=== PATIENT | male | born 1950 | race Caucasian/White ===

== ENCOUNTER 2019-08-28 12:10 | Inpatient (IN) | payer OTHER ==
[~2019-08-28] VITALS: Ht 182.9 cm; Wt 80.2 kg
[2019-08-28 12:16] VITALS: BP 108/63
[2019-08-28 13:07] LABS: ABSOLUTE NEUTROPHILS 4.6 thou/uL (1.4-8.2); BASOPHILS 0.7 % (0.0-2.0); EOSINOPHILS 0.7 % (0.0-3.0); HEMATOCRIT 41.3 % (42.0-52.0); HEMOGLOBIN 13.4 gm/dL (14.0-18.0); LYMPHOCYTES 16.5 % (24.0-44.0); MCH 30.7 pg (26.0-34.0); MCHC 32.5 g/dL (28.0-37.0); MCV 94.2 fL (80.0-100.0); MONOCYTES 5.9 % (1.0-8.0); PLATELET COUNT 178 thou/uL (150-400); POLYS 76.2 % (36.0-66.0); RBC 4.38 mil/uL (4.50-6.00); RDW 13.7 % (10.5-14.5)
[2019-08-28 13:08] LABS: CREATININE 0.8 mg/dL (0.7-1.3); POTASSIUM 4.5 mmol/L (3.5-5.1)
[2019-08-28 13:14] LABS: ALBUMIN 3.7 g/dL (3.4-5.0); TOTAL BILIRUBIN 0.9 mg/dL (<0.1-1.0); TOTAL PROTEIN 6.7 g/dL (6.4-8.2)
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
[2019-08-28 13:42] VITALS: BP 109/59; BP 112/64
[2019-08-28] MEDS ORDERED: ASA81BEC PO (13:45)
[2019-08-28] MEDS ORDERED: CERTAVITE SR-A1 EACH PO (13:46)
[2019-08-28] MEDS ORDERED: OMEPRAZOLE 20 M20 M1 PO (13:46)
[2019-08-28] MEDS ORDERED: CELEXA 10 MG TA10 M1 PO (13:46)
[2019-08-28] MEDS ORDERED: LOTENSIN10 MG PO (13:46)
[2019-08-28] MEDS ORDERED: DOK100 MG PO (13:46)
[2019-08-28] MEDS ORDERED: ARICEPT10 M1 PO (13:46)
[2019-08-28 14:06] LABS: URINE BILIRUBIN NEGATIVE (Negative); URINE BLOOD NEGATIVE (Negative); URINE CLARITY CLEAR; URINE COLOR YELLOW; URINE GLUCOSE-RANDOM* NEGATIVE (Negative); URINE KETONES NEGATIVE (Negative); URINE LEUKOCYTES-REFLEX NEGATIVE (Negative); URINE NITRITE-REFLEX NEGATIVE (Negative); URINE PROTEIN (DIPSTICK) NEGATIVE (Negative); URINE UROBILINOGEN 0.2 E.U./dl (0.2-1.0)
[2019-08-28 14:14] LABS: AMP/METHAMP Negative (Negative); BARBITURATES Negative (Negative); BENZODIAZEPINES Negative (Negative); COCAINE Negative (Negative); METHADONE Negative (Negative); OPIATES Negative (Negative); PCP Negative (Negative)
[2019-08-28 14:36] VITALS: BP 109/63
[2019-08-28 15:33] VITALS: BP 109/63
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
[2019-08-28] MEDS ORDERED: NAMENDA 10 MG T10 MG PO ×2 (16:23→16:29)
[2019-08-28] MEDS ORDERED: FLOMAX0.4 MG PO (16:26)
[2019-08-28] MEDS ORDERED: FLECAINIDE ACET50 M1 PO (16:28)
[2019-08-28 19:50] VITALS: BP 107/64
[2019-08-28 20:15] VITALS: BP 107/64
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
[2019-08-29 08:30] VITALS: BP 105/65
--- NOTE | 2019-08-29 08:45 | NUR ---
PT EATING IN DINING ROOM. PT DENIES ANY PAIN. PT WAS ABLE TO DRESS SELF THIS AM, PT WAS SLOW TO PUTTING ON CLOTHES. PT TOOK MEDS THIS AM ONE AT TIME. PT ABLE TO WALK WITH STEADY GAIT.
[2019-08-29 08:48] VITALS: BP 105/65
--- NOTE | 2019-08-29 15:12 | NUR ---
HELEN called Sohail pt's twin and guardian to complete the intake assessment and TP. Helen spoke with pt and was able to establish some accuracry. Pt lives at [facility] [phone] in [facility] and is able to return there after d/c. FAX [phone]. Director would like to see some change in level of anxiety and paranoid ideas , including comfort. Helen will send updates as needed. Family meeting was set for 08/29 at 11:[address] crowe and Sw team.
[2019-08-29 19:26] VITALS: BP 112/65
[2019-08-29 21:00] VITALS: BP 112/65
--- NOTE | 2019-08-30 04:29 | NUR ---
Assumed care of patient this pm shift. Patient sitting at a table in the activity area. Patients affect flat. Patient is slow to respond to questions but does respond. Patient denies pain. Patient denies hi/si. Patient ambulates with out assistance. Patient takes medications whole. Patients assessment shows clear breath sounds, active bowel sounds, and s1 s2 heard with auscultation. Patient is neat and tidy in dress. Patient is calm and cooperative. No aggressive behaviors. We will continue to monitor.
[2019-08-30 08:00] VITALS: BP 125/67
--- NOTE | 2019-08-30 08:13 | EKG ---
[facility] [place] [address] ELECTROCARDIOGRAM REPORT Name: NADINE DAILEY Room #: [facility] ADM IN M.R.#: [id number] Admission: 08/28/19 Attend Phys: William Winn DO Discharge: Date of : 54 Report #: [id number] THIS REPORT FOR: cc: FAM - Family physician unknown FAM - Family physician unknown Tin Castelan MD [facility] ~ THIS REPORT FOR: //name// [facility] Test Date: 2019-08-29 Test Time: 16:52:01 Pat Name: NADINE DAILEY Department: Room: [facility] Gender: M Inbound Sales Advisor: Catalino BARFIELD : 1950 Requested By: William Winn Order Number: [id number] MD: Tin Castelan Measurements Intervals [place] Rate: 58 P: 33 TN: 144 QRS: -2 QRSD: 103 T: 49 QT: 408 QTc: 401 Interpretive Statements Sinus bradycardia Otherwise no significant abnormality No previous ECG available for comparison Electronically Signed On 08-30-2019 8:12:01 HOUSEHOLD REFRIGERATOR MECHANIC by Tin Castelan [email or web address] <ELECTRONICALLY SIGNED> By: Tin Castelan MD, FAC 08/30/19 0812 165 165 Tin Castelan MD, [facility] /EPI
[2019-08-30 08:42] VITALS: BP 125/67
--- NOTE | 2019-08-30 09:37 | NUR ---
PT FINISHED BREAKFAST, PT ATTENDING GROUP WITH EXERCISE. PT TOOK MEDS THIS AM WITHOUT ANY ISSUES. PT SLOW TO TAKING MEDS. SEEMS LIKE HANDS ARE STIFF. PT LISTENING TO THIS RN STAFFING AND IS SLOW TO RESPOND. PT DENIES ANY EYE IRRITATION THIS AM.
--- NOTE | 2019-08-30 12:57 | NUR ---
CRISTINO and Dr winn met [facility] pt's guardian Sohail and he stated that their bio dad had early onset alz, and would like a clearer DX for this pt. Dr Winn reported on meds and treatment plan , and offered a new DX of Lewy body. CRISTINO and Dr winn also discussed pt needing a higher level of care in the near future. CRISTINO provided referrals and education on AL with memory care and LTC memory care. Sohail was receptive to this plan.
--- NOTE | 2019-08-30 14:17 | NUR ---
Sw faxed updates to [facility] , confirmation received.
--- NOTE | 2019-08-30 18:04 | NUR ---
PT HAS HAD A GOOD DAY TODAY. PT ATTENDED GROUPS AND IS COMPLIENT. NO SIGNS OF AGGRESSION, AGITATION, AND PARANOIA.
[2019-08-30 19:16] VITALS: BP 87/49
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
[2019-08-30 21:00] VITALS: BP 87/49
--- NOTE | 2019-08-31 01:24 | NUR ---
Assumed care of patient this pm shift. Patient was awake in his room when RN met him for his assessment. Patients affect is flat. Patient does not initiate any conversation but does answer questions slowly. Patient denies hi/si. Patient denies pain. Patient adherent with scheduled medications. Patient takes medications whole. Patient ambulates without assistance. Patient toilets himself without assistance. Patients assessment shows clear breath sounds, active bowel sounds, and s1 s2 heard with auscultation. We will continue to monitor.
[2019-08-31 07:52] VITALS: BP 99/59
--- NOTE | 2019-08-31 08:59 | NUR ---
Sw completed chart review and pt seems to be abck at his baseline. Pt could possibly d/c back to [facility] tomorrow if ordered. Will follow up as needed.
[2019-08-31 10:33] VITALS: BP 99/59
--- NOTE | 2019-08-31 10:56 | NUR ---
SW made packet and left it on the chart. FAX D/C cover sheet completed and pakcet ready for D/C summary and orders when completed in the AM.
--- NOTE | 2019-08-31 13:15 | NUR ---
VSS-AFEBRILE. LUNGS CLEAR-ROOM AIR. CALM AND COOPERATIVE. PARTICIPATING IN ALL GROUPS AND MEAL TIMES THIS AM. STEADY WITH AMBULATION.
--- NOTE | 2019-08-31 15:01 | NUR ---
Helen met with Benoit after group and he was very weepy, and inconsolable. Pt was unable to describe his feelings or thoughts and through prompting seemed to be experiencing grief and loss. Helen requested a consult with Dr crowe and to re evaluate the d/c for tomorrow. Dr crowe agreed to keep pt through the weekend and adjust the pt's medications. Helen then called Sohail and reported this to him, and he stated he had concerns about pt discharging too. Tori martinez reported the change in the d/c to nursing staff adn [facility].
[2019-08-31 17:50] VITALS: BP 108/76
--- NOTE | 2019-08-31 18:19 | NUR ---
Resting in bed without s/o distress. Orientated X3, denies SI/HI. Reg, steady gait when ambulating. Affect very flat and sad. Breath sounds clear t/o, bilaterally equal. Reg HR auscultated. Color pale pink with brisk capillary refill and palpable peripheral pulses. +3 pitting edema to lower extremities. Brief saturated with yellow urine. Active bowel sounds over soft, rounded abdomen. Smear of brown stool on brief. Currently sitting in day room conversing with peer. No s/o distress. BP repeated d/t AM BP of 99/59.
[2019-08-31 19:30] VITALS: BP 108/76
--- NOTE | 2019-09-01 03:45 | NUR ---
Assumed care of pt @ 1900. Pt calm et cooperative this shift. No behaviors noted. Ambulates halls ad mauri with steady gait. Took medications whole without difficulty. Denies SI/HI @ present time. Pt continues to be somewhat unclear with speech et acts slightly confused when taking medications as to what he's supposed to do with the pills. VSWNL. Health assessment with no abnormalities at present time. Currently resting in bed with eyes closed. Will continue to monitor per protocol.
[2019-09-01 07:32] VITALS: BP 118/72
--- NOTE | 2019-09-01 14:57 | NUR ---
[id number] [phone] [id number] Benoit was present for grp today. The grp was lead by Louise in dietary. Benoit sat quitely. Did respond is a soft low voice when asked questions, he answered with a one word answers. He became tearful during group. I informe his nurse; she came and spoke with him. Please see notes for details.
--- NOTE | 2019-09-01 15:30 | NUR ---
PT ATTENDED GROUP AT THIS TIME. SITTING QUIETLY LISTENING.
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
[2019-09-01 19:59] VITALS: BP 112/67
[2019-09-01 21:00] VITALS: BP 112/67
--- NOTE | 2019-09-02 00:44 | NUR ---
Assumed care of patient this pm shift. Patient sitting in dining room watching tv with peers. Patients affect is flat. Patient did not make eye contact when spoken to. Patient denies hi/si. Patient denies pain. Patient speaks at a very low volume and tone. Patient calm and cooperative. Patients assessment shows clear breath sounds, active bowel sounds, and s1 s2 heard with auscultation. Patient states that he is regular with bowel movements. Patient is somewhat smelly and recieved a small sponge bath at the bedside. Patient went to bed and has been sleeping soundly. Patient takes medications whole. Patient ambulates without assistance. We will continue to monitor.
[2019-09-02 08:05] VITALS: BP 110/69
[2019-09-02 09:41] VITALS: BP 110/69
--- NOTE | 2019-09-02 10:36 | NUR ---
1034 RESUMMED CARE FROM OVERNIGHT SHIFT, PATIENT UP IN DAY ROOM QUIET. PATIENT ATE BREAKFAST TOOK MEDICATION WITHOUT INCIDENCE. PATIENT DENIES SI/HI/AH/VH AT PRESENT, PATIENT QUIET COOPERATIVE AFFECT FLAT. BOWEL SOUNDS PRESENT ABDOMEN SOFT ROUND, LUNGS CLEAR NO COMPLAINTS ABOUT PAIN. PATIENT IN DAY ROOM QUIET CALM COOPERATIVE. WILL CONTINUE MONITOR PATIENT FOR SAFETY AND BEHAVIORS.
[2019-09-02 20:06] VITALS: BP 115/63
--- NOTE | 2019-09-03 03:11 | NUR ---
Assumed care of pt @ 1900. Pt calm et cooperative this shift. Took medications whole without difficulty. Ambulates the halls ad mauri with steady gait. Pt sits in dayroom throughout parts of shift but does not socialize with peers. VSWNL. Health assessment with no abnormalities at present time. Denies SI/HI at present time. Currently resting in bed with eyes closed. Will continue to monitor per protocol.
[2019-09-03 08:46] VITALS: BP 122/68
--- NOTE | 2019-09-03 16:03 | NUR ---
PT ALERT AND ORIENTED TIMES THREE, FLAT AFFECT. PT DID NOT ANSWER ALL ASSESSMENT QUESTIONS, AND IS SLOW TO RESOPND. PT TOLERATES MEDS AND MEALS. PT UP AND OUT AROUND THE UNIT WITH LITTLE INTERACTION WITH PEERS. PT DID PARTICIPATE WITH GROUP. PT ALSO HAD A VISTOR THIS MORNING. PT SLOWLY PROGRESSIN TOWRADS POC GOALS.
[2019-09-03 19:56] VITALS: BP 118/70
--- NOTE | 2019-09-03 22:39 | NUR ---
Assumed care of patient this pm shift. Patient sitting in activity area with peers watching tv. Patient calm, content and pleasant. Patients affect flat. Patient denies hi/si. Patient denies pain. Patients clothes are neat and tidy. Patient takes medications whole with fluids. Patients assessment shows clear breath sounds, active bowel sounds, and s1 s2 heard with auscultation. We will continue to monitor.
[2019-09-04 07:52] VITALS: BP 116/68
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
[2019-09-04 11:10] VITALS: BP 116/68
[2019-09-04] MEDS ORDERED: LEXAPRO 10 MG T10 M1 PO (11:32)
[2019-09-04] MEDS ORDERED: DEPAKOTE ER250 MG PO (11:32)
[2019-09-04] MEDS ORDERED: NAMENDA 5 MG TAB5 M1 PO (11:33)
[2019-09-04] MEDS ORDERED: METHYLPHENIDATE5 M1 PO (11:33)
[2019-09-04] MEDS ORDERED: COLACE 100 MG100 MG PO (11:34)
--- NOTE | 2019-09-04 12:27 | NUR ---
1100 RESUMMED CARE FROM OVERNIGHT SHIFFT THIS AM, PATIENT IN DAY ROOM QUIET WAITING FOR BREAKFSAT. PATIENT TOOK MEDICATION WITHOUT INCIDENCE, BOWEL SOUNDS PRESENT LUNGS CLEAR ABDOMEN SOFT ROUND. PATIENT QUIET COOPERATIVE ATTENDED GROUP. PATIENT DENIED SI/HI/AH/VH AT PRESENT. PATIENT DISCHARGED AT 1230 TO BACK TO PREVIOUS PLACEMENT. PATIENT HAS BELONGINGS AFTERCARE INSTRUCTIONS AND SCRIPTS BROTHER IS TRANSPORTING PATIENT.
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
== END 2019-09-04 12:50 | DRG 57 ==
LOC: ER 12:10 → SBH 14:10 → ER 14:10 → SBH 14:33
PROVIDERS: Nurse Practitioner Family; ADMIT Psychiatry & Neurology Psychiatry
DX: G30.9 Alzheimer's disease, unspecified (principal); F02.81 Dementia in other diseases classified elsewhere, unspecified severity, with behavioral disturbance; I48.20 Chronic atrial fibrillation, unspecified; I10 Essential (primary) hypertension; F32.9 Major depressive disorder, single episode, unspecified; F41.9 Anxiety disorder, unspecified; N40.0 Benign prostatic hyperplasia without lower urinary tract symptoms; Z79.82 Long term (current) use of aspirin; Z88.2 Allergy status to sulfonamides; Z79.01 Long term (current) use of anticoagulants; Z79.899 Other long term (current) drug therapy; Z28.21 Immunization not carried out because of patient refusal
CPT/HCPCS: 10880

== ENCOUNTER 2019-09-13 18:28 | Inpatient (IN) | payer OTHER ==
[~2019-09-13] VITALS: Ht 177.8 cm; Wt 77.0 kg
[~2019-09-13 18:28] MED LIST: ARICEPT10 M1 PO; ASA81BEC PO; CELEXA 10 MG TA10 M1 PO; CERTAVITE SR-A1 EACH PO; COLACE 100 MG100 MG PO; DEPAKOTE ER250 MG PO; DOK100 MG PO; FLECAINIDE ACET50 M1 PO; FLOMAX0.4 MG PO; LEXAPRO 10 MG T10 M1 PO; LOTENSIN10 MG PO; METHYLPHENIDATE5 M1 PO; NAMENDA 10 MG T10 MG PO; NAMENDA 5 MG TAB5 M1 PO; OMEPRAZOLE 20 M20 M1 PO
[2019-09-13 18:32] VITALS: BP 139/72
[2019-09-13 19:18] LABS: ABSOLUTE NEUTROPHILS 4.5 thou/uL (1.4-8.2); BASOPHILS 0.8 % (0.0-2.0); EOSINOPHILS 0.8 % (0.0-3.0); HEMATOCRIT 38.7 % (42.0-52.0); HEMOGLOBIN 12.7 gm/dL (14.0-18.0); LYMPHOCYTES 17.7 % (24.0-44.0); MCH 31.1 pg (26.0-34.0); MCHC 32.9 g/dL (28.0-37.0); MCV 94.6 fL (80.0-100.0); MONOCYTES 7.8 % (1.0-8.0); PLATELET COUNT 200 thou/uL (150-400); POLYS 72.9 % (36.0-66.0); RBC 4.09 mil/uL (4.50-6.00); WBC 6.2 thou/uL (4.0-11.0)
[2019-09-13 19:28] LABS: ANION GAP 5 mmol/L (7-16); BUN 10 mg/dL (7-18); CALCIUM 8.9 mg/dL (8.5-10.1); CHLORIDE 103 mmol/L (98-107); CO2 30 mmol/L (21-32); GLUCOSE 258 mg/dL (74-106); POTASSIUM 3.6 mmol/L (3.5-5.1); SODIUM 138 mmol/L (136-145)
[2019-09-13 19:31] LABS: SALICYLATE < 2.8 mg/dL (2.8-20.0)
[2019-09-13 19:58] LABS: AMP/METHAMP Negative (Negative); BARBITURATES Negative (Negative); BENZODIAZEPINES Negative (Negative); COCAINE Negative (Negative); METHADONE Negative (Negative); OPIATES Negative (Negative); PCP Negative (Negative)
[2019-09-13 20:05] LABS: URINE BILIRUBIN NEGATIVE (Negative); URINE BLOOD NEGATIVE (Negative); URINE CLARITY CLEAR; URINE COLOR YELLOW; URINE GLUCOSE-RANDOM* 2+ (Negative); URINE KETONES 1+ (Negative); URINE LEUKOCYTES-REFLEX NEGATIVE (Negative); URINE NITRITE-REFLEX NEGATIVE (Negative); URINE PROTEIN (DIPSTICK) NEGATIVE (Negative); URINE SPECIFIC GRAVITY 1.025 (1.005-1.035); URINE UROBILINOGEN 0.2 E.U./dl (0.2-1.0)
--- NOTE | 2019-09-13 23:09 | NUR ---
Pt admitted to unit @ 2119 after medical clearance in ER. Pt brought to unit via w/c. Ambulates the halls ad mauri with steady gait. Pt calm et cooperative though very confused. Pt appears to be okay with admission to unit et did not express a wish to leave. Denies SI/HI/AH/VH @ present time. VSWNL. Health assessment with no abnormalities other than noted in interventions. Watched television in dayroom until HS. Guardian contacted et gave consent to treat. etl data architect psych et hospitalist notified of pt admission. Currently resting in bed with eyes closed. Will continue to monitor per protocol.
[2019-09-13 23:52] VITALS: BP 149/83
[2019-09-14 09:22] VITALS: BP 124/74
--- NOTE | 2019-09-14 09:37 | NUR ---
0700 ASSUMED CARE OF PATIENT, PATIENT SITTING ON COUCH IN DAYROOM AT THAT TIME. 0730 NO C/O PAIN, DENIES SI/HI/AH/VH, WHEN ASKED PATIENT ABOUT SI HE LAUGHED A LITTLE THEN STATED NO. PATIENT LUNGS CLEAR, BS ACTIVE, PATIENT STATES GOAL FOR TODAY IS TO SEE HIS AND A CONCERN IS TO BE CAREFUL HERE IT GETS LOUD AT TIMES. 0800 PATIENT SITTING AT TABLE EATING BREAKFAST FEEDING SELF. 0845 TOBACCO DRUMMER GIVES CUP OF MEDICATION TO PATIENT. PATIENT STATES HE WILL TAKE THEM. PATIENT DUMPS MEDS ON [place] ON TABLE STARES AT THEM THEN PICKS THEM UP AND PUTS THEM BACK INTO MED CUP. CONTINUES TO HAVE A FLAT AFFECT AND GOES TO DUMP MEDS OUT AGAIN WHEN TOBACCO DRUMMER ASKS IF HE NEEDS HELP. PATIENT STATES YES. TOBACCO DRUMMER PUTS MEDS IN PATIENT MOUTH VIA MED CUP AND PATIENT TAKES WITH SIPS OF ORANGE JUICE WITH TOBACCO DRUMMER GIVING JUICE TO PATIENT WELL. PATIENT APPEARS TO BE CONFUSED AND DIFFICULTY PROCESSING WHAT TO DO. PATIENT TONE OF VOICE IS SOFT AND HARD TO HEAR AT TIMES. 0910 PATIENT PARTICIPATING IN GROUP DOING EXERCISES. WILL CONTINUE TO OBSERVE FOR BEHAVIORS.
--- NOTE | 2019-09-14 09:46 | NUR ---
CRISTINO contacted pt's brother Sohail and received background info on why pt has returned. He said pt went back to his facility and became combative and aggressive again. He did not hit anyone though. SW reminded him the last SW suggested memory care. Eventually Sohail agreed and said he will look at the facilities on the listing he was given by the previous oncology social worker via [employer] and then choose 3-5 options for SW. SW team will continue to follow pt during his stay on this unit.
--- NOTE | 2019-09-14 16:59 | NUR ---
1600 PATIENT UP IN HALLWAY PACING. PATIENT ATTEMPTING TO GO OUT EXIT DOOR. PATIENT EASILY REDIRECTED. WHEN WRITTER ASKS PATIENT IF NEEDING SOMETHING PATIENT PAUSES AND APEARS IF UNABLE TO PROCESS WHAT IS SAID TO HIM. TAKES HIM A BIT TO VOICE NEEDS OR ANSWER QUESTIONS. PATIENT HAS A FLAT AFFECT AND CONTINUES TO WANDER THE VALDEZ. WILL CONTINUE TO MONITOR.
[2019-09-14 19:43] VITALS: BP 92/59
--- NOTE | 2019-09-15 04:05 | NUR ---
Assumed care of pt @ 1900. Pt calm et cooperative this shift. Took medications whole without difficulty. Continue to be quite confused et occasionally unable to form the words of what he wants to say. Ambulates the halls ad mauri with steady gait. VSWNL. Health assessment with no abnormalities noted at present time. Denies SI/HI. Spent evening in dayrrom with peers watching television but did not socialize with peers. Currently resting in bed with eyes closed. Will continue to monitor per protocol.
[2019-09-15 06:16] LABS: HEMATOCRIT 41.4 % (42.0-52.0); HEMOGLOBIN 13.9 gm/dL (14.0-18.0); MCH 31.4 pg (26.0-34.0); MCHC 33.5 g/dL (28.0-37.0); MCV 93.6 fL (80.0-100.0); RBC 4.42 mil/uL (4.50-6.00); RDW 13.9 % (10.5-14.5); WBC 5.7 thou/uL (4.0-11.0)
[2019-09-15 06:33] LABS: CALCIUM 8.8 mg/dL (8.5-10.1); CREATININE 0.8 mg/dL (0.7-1.3); MAGNESIUM 1.9 mg/dL (1.8-2.4); POTASSIUM 3.8 mmol/L (3.5-5.1)
[2019-09-15 07:09] LABS: TSH 1.828 uIU/mL (0.358-3.740)
[2019-09-15 07:54] LABS: FOLIC ACID 29.6 ng/mL (8.6-58.9)
[2019-09-15 08:00] VITALS: BP 129/79
--- NOTE | 2019-09-15 11:34 | NUR ---
0700 ASSUMED CARE OF PATIENT, PATIENT IN BED AT THAT TIME. 0830 PATIENT TO DAYROOM FOR BREAKFAST. PATIENT DENIES NEEDS, NO C/O PAIN, LS CLEAR, BS ACTIVE. MEDS TAKEN WHOLE WITH HELP FROM [employer]. UNABLE TO SET A GOAL FOR THE DAY AND NO CONCERNS VOICED. WILL CONTINUE TO OBSERVE.
--- NOTE | 2019-09-15 15:10 | NUR ---
SW met with pt while in dinign area and he seemed content. Did not have group due to COVID 19 restrictions
--- NOTE | 2019-09-15 17:49 | NUR ---
PATIENT SITTING ON COUCH WATCHING TV. ATE DINNER AND DENIES NEEDS AT THIS TIME.
[2019-09-15 19:26] VITALS: BP 111/68
--- NOTE | 2019-09-15 21:55 | NUR ---
Pt. is ambulating ad mauri and looking for room. Pt. directed to room and assessment completed. Pt.'s ID band found in day room. Disposed of that band and made new one and put on patient. Pt. is alert to name only and answers questions very slowly and at times has hard time finding and/or saying the word he wants to. Pt. took meds whole with thin liquids. No coughing or choking noted after swallowing. Pt. changed to scrub pants and got in bed. No agression noted and pt denies SI/HI.
[2019-09-15 22:07] LABS: GLYCOHEMOGLOBIN (HGB A1C) 6.2 % (4.8-5.6)
[2019-09-15 22:41] VITALS: BP 111/68
[2019-09-16 09:32] VITALS: BP 111/68
--- NOTE | 2019-09-16 14:11 | NUR ---
CRISTINO sent referrals to [facility], [facility], [facility], and [facility]. CRISTINO did a check in with pt. He said that he was okay. He didn't talk much more than that. SW team will continue to follow pt during his stay on this unit.
--- NOTE | 2019-09-16 18:42 | NUR ---
ASSUMED CARE AT 0700 THIS MORNING. PT. STABLE. HE HAS HAS BEEN COOPERATIVE WITH STAFF TODAY. AFFECT FLAT, MOOD NEUTRAL. PT. TOOK MEDICATIONS WITHOUT DIFFICULTY. HE IS SOFT SPOKEN. VSS. HE DOES CONTINUED TO HAVE DIFFICULTY PROCESSING INFORMATION AT TIMES.
[2019-09-16 19:22] VITALS: BP 107/65
--- NOTE | 2019-09-16 20:22 | NUR ---
Assumed care at start of shift. Patient sitting in day room with flat affect and head slighty lowered. He does not interact or converse with his peers. Pt. was cooperative with assessment. He is alert and oriented to name only, and has a very delayed response to answers and appears to have a hard time processing information to formulate an aswer. He is pleasant and cooperative. In answering some questions patient mumbles incomprehensible words. He is soft spoken and does not maintain eye contact. No signs or symptoms of distress noted. PAINAD = 0. .
[2019-09-16 22:45] VITALS: BP 107/65
[2019-09-17 07:23] VITALS: BP 107/64
[2019-09-17 09:58] VITALS: BP 107/64
--- NOTE | 2019-09-17 10:23 | NUR ---
ASSUMED CARE AT 0700 THIS MORNING. PT. WAS IN BED. HE INITIALLY REFUSED BREAKFAST BUT AFTER THIS RN WENT INTO HIS ROOM AND GAVE HIM HIS MEDICATION AND DID THE MORNING ASSESSMENT. AFTER THE ASSESSMENT, HE GOT UP AND ATE. HE CONTINUES WITH FLAT AFFECT AND MOOD. NO NEW PROBLEMS NOTED OR VOICED THIS MONING. HE WENT BACK TO HIS ROOM AND LAYED DOWN AFTER EATING.
[2019-09-17 19:26] VITALS: BP 143/68
[2019-09-17 21:00] VITALS: BP 143/68
--- NOTE | 2019-09-18 01:09 | NUR ---
PATIENT WAS UP IN DINING ROOM TONIGHT SITTING WITH OTHER PATIENTS. HE OCCASIONALLY GOT UP AND WALKED BACK TO HIS ROOM BUT WOULD HIGH REACH OPERATOR ONE SPOT TRYING TO RECALL WHY HE HAD CAME BACK TO ROOM. PATIENT DOES HAVE A FLAT AFFECT. HE IS SLOW IN MOVING AND IN HIS RESPONSES VERBALLY. PATIENT DOES DENY PAIN. HE TOOK HIS MEDS WHOLE WITHOUT PROBLEM. HE IS CALM AND COOPERATIVE. PATIENT STILL NEEDS VERBAL STEP BY STEP DIRECTION IN CHANGING CLOTHES AND WITH CARES. PATIENT IS SLEEPING AT THIS TIME. HE IS A/0 X 1-2. CONTINUING ROUNDS TO CHECK FOR SAFETY. BED IN LOW POSITION. CONTINUING TO MONITOR.
[2019-09-18 08:26] VITALS: BP 124/70
--- NOTE | 2019-09-18 15:23 | NUR ---
Sw checked in with Pt as SW group has been canceled due to COVID-19 restictions. When asked about his mood Pt stated, " Well I am hanging in there". Pt did not have much to discuss. Pt denied having any worries at this time and did not have any further to discuss. SW will continue check in with Pt.
--- NOTE | 2019-09-18 15:36 | NUR ---
ALERT TO NAME ONLY FLAT AFFECT SLOW TO RESPOND TO VERBAL CUES. DID DRESS SELF AND AMBULATE TO DINNING ROOM FOR MEALS WITH SLOW STEADY GAIT. CONTINUES TO HAVE FLAT AFFECT. GOOD APPETITE FOR MEALS.
[2019-09-18 19:23] VITALS: BP 115/65
--- NOTE | 2019-09-18 23:07 | NUR ---
PROGRESS PT ALERT BUT SLOW TO RESPOND. BUT CALM AND COOPERATIVE. WAS LAYING IN EMPTY ROOM AND ESCORTED TO HIS ROOM WITHOUT DIFFICULTY. WAS PUSHING AND CARRYING CHAIRS AROUND AT BEGINNING OF SHIFT BUT STOPPED AFTER BEING REDIRECTED 2 TIMES. GAIT STEADY, TOOK MEDICATIONS WITHOUT DIFFICULTY. IS LYING IN BED SLEEPING AT THIS TIME.
[2019-09-19 08:47] VITALS: BP 112/72
[2019-09-19 09:21] VITALS: BP 112/72
--- NOTE | 2019-09-19 09:31 | NUR ---
ASSUMED CARE AT 0700 THIS MORNING. PT. IS AWAKE, GOTTEN UP, DRESSED AND OUT FOR BREAKFAST. HE IS SITTING BY HIMSELF AT A TABLE. HE IS UNABLE TO CUT HIS OWN SAUSAGE. WAS APPRECIATIVE OF THIS RN CUTTING IT FOR HIM. HE TOOK HIS MORNING MEDICATIONS WITHOUT PROBLEMS. THIS RN STAYED NEXT TO HIM FOR A BIT TO INSURE HE DID NOT CHEEK HIS MEDICATIONS. HE STATES HE HAD A BM YESTERDAY. HE WAS COOPERATIVE WITH ASSESSMENT. HIS LUNGS ARE CTA, HRR. ABDOMIN SOFT. STATES HE FEELS FINE. HE IS STATING HE DOES HEAR VOICES BUT UNABLE TO NOT REACT TO THEM AT TIMES.
--- NOTE | 2019-09-19 13:43 | NUR ---
CRISTINO received an email from Madonna from [facility] requesting pt's notes from last admission since it was so recent. CRISTINO faxed those notes to her. SW team will continue to follow pt during his stay on this unit.
--- NOTE | 2019-09-19 15:18 | NUR ---
SW did a check in with pt instead of group due to COVID-19 guidelines. SW attempted to talk with pt, but he did not respond to SW.
[2019-09-19 19:41] VITALS: BP 100/60
--- NOTE | 2019-09-20 03:05 | NUR ---
Assumed pt care @1915. pt was in bed most of the night. pt got up once and urinated all over the floor. pt redirected and went back to bed. pt took meds whole with water. was withdrawned overnight and didn't want to communicate very much. denies SI. Fall prec in place. will cont to monitor
[2019-09-20 09:02] VITALS: BP 99/61
--- NOTE | 2019-09-20 09:38 | NUR ---
0700 ASSUMED CARE OF PATIENT. PATIENT IN BED AT THAT TIME. 0740 PATIENT OUT TO DAYROOM. DENIES NEEDS. 0810 PATIENT ATE BREAKFAST DENIES PAIN, LUNG SOUNDS CLEAR, BS ACTIVE. PATIENT ONTUES TO HAVE A FLAT AFFECT. PATIENT SLOW TO RESPOND TO QUESTIONS, DIFFICULT IN THOUGHT PROCESS, DENIES SI/HI/AH/VH, PATIENT CONTINUES TO SIT AT TABLE WATCHING TV. WILL CONTINUE TO OBSERVE FOR BEHAVIORS.
--- NOTE | 2019-09-20 14:02 | NUR ---
SW saw pt in group room but he was observing. There was no group due to COVID 19 restrictions
--- NOTE | 2019-09-20 15:32 | NUR ---
Date of Admission: 09/13/19 Date of Activity Therapy Assessment: 09/16/19 Activity Goal: Social Tolerance/Engagement Initial Goal: 1 Group activity/day Weekly progress towards goal: Did not achieve goals Group participation level: Needs some assistance Behaviors observed: Patient's wandering and exploring behaviors have increased since his last admission. Pt is unable to remain focused in group and often wanders the group area rather than engaging. He speaks softly and unclear making it difficult to communicate in social situations. Plan: No change towards goal
--- NOTE | 2019-09-20 15:35 | NUR ---
CRISTINO received an email from Madonna with [facility] stating [facility] would like to come assess pt. However, if they are not able to accept him, [facility] would like to come and assess. CRISTINO contacted admissions at and was told they are out for the day. CRISTINO left a msg with the unit receptionist asking for a return call. SW team will continue to follow pt during his stay on this unit.
--- NOTE | 2019-09-20 18:59 | NUR ---
PATIENT UP AMB IN VALDEZ WITH NO PANTS, REDIRECTED PATIENT TO ROOM. PATIENT CONFUSED AND FLAT AFFECT WHEN ELECTRONICS ENGINEERING MANAGER ASKS HIM TO HO BACK TO ROOM. DIFFICULTIES PROCESSING DIRECTIONS. REPORT GIVEN TO ON COMING SHIFT
[2019-09-20 19:56] VITALS: BP 93/52
[2019-09-21 00:24] VITALS: BP 93/52
--- NOTE | 2019-09-21 02:22 | NUR ---
Assumed care at change of shift. Pt. was sitting in day room with peers watching TV. He was not conversing with peers and only occasionally looked at the TV. He was sitting slumped over, had a very flat affect and was drooling at times. He did not answer any questions that were asked of him. He wonders in and out of patients rooms and urinates all over the unit in front of staff and peers. Thus far this unit he has urinated in the hallway and in the day room.
[2019-09-21 08:00] VITALS: BP 119/65
[2019-09-21 08:46] VITALS: BP 119/65
--- NOTE | 2019-09-21 16:34 | NUR ---
CRISTINO received a call from Magalys with [facility] asking for a return call. CRISTINO contacted [facility] and spoke to Hanane the director who said they plan to take pt back and Magalys wanted to arrange a time. CRISTINO explained that she has not heard if pt is ready for d/c and will discuss this in tx team tomorrow. Hanane asked CRISTINO to call Magalys tomorrow after the meeting. SW team will continue to follow pt during his stay on this unit.
--- NOTE | 2019-09-21 17:49 | NUR ---
assumed pt care report received from nurse. pt is aox3 calm, quiet, flat affect. has good appetite. cooperative. denies pain. pt likes to take naps after meals. no complaint.
--- NOTE | 2019-09-21 17:51 | NUR ---
pt is wandering in other patient's rooms
[2019-09-21 20:00] VITALS: BP 103/65
[2019-09-21 20:40] VITALS: BP 119/65
--- NOTE | 2019-09-21 23:22 | NUR ---
PT ASSESSMENT DONE AND VSS. MEDS GIVEN AND WELL TOLERATED. FALL PRECAUTIONS IN PLACE. PT WANDERS THE HALLS AND ALSO SITS IN THE ACTIVITY ROOM WITH THE OTHER RESIDENTS. BRIEF ANSWERS TO ANY QUESTIONS ASKED OF HIM. DENIES PAIN AND SI. WILL CONTINUE TO MONITOR.
[2019-09-22 08:31] VITALS: BP 112/73
--- NOTE | 2019-09-22 10:05 | NUR ---
Nutrition: pt admitted to [facility] unit with major neurocognitive disorder and seen for LOS. Chart reviewed. Spoke with nsg as pt inappropriate for interview. Good appetite is charted and pt eats 75-100% of most meals on carb controlled diet. No BG to eval. A1C 6.2. Recent weights stable but no extended hx available. Consider low nutrition risk.
[2019-09-22 10:38] VITALS: BP 112/73
--- NOTE | 2019-09-22 11:53 | NUR ---
1145 RESUMMED CARE FROM OVERNIGHT SHIFT THIS AM, PATIENT IN ROOM RESTING. PATIENT DID COME TO DAY ROOM TO EAT BREAKFAST AND TOOK MEDICATION WITHOUT INCIDENCE. PATIENT'S BOWEL SOUNDS PRESENT IN ALL 4 QUADRANTS, ABDOMEN SOFT LUNGS CLEAR. PATIENT'S AFFECT IF FLAT NO INTERACTION WITH ANYONE, PATIENT APPEARS TO BE REGRESSING. PATIENT WAS NOT ABLE TO RESPOND TO QUESTIONS ABOUT SI/HI/AH/VH AT PRESENT. BEHAVIOR CALM QUIET WILL CONTINUE TO MONITOR PATIENT FOR SAFETY AND BEHAVIORS.
--- NOTE | 2019-09-22 13:54 | NUR ---
CRISTINO and Dr. Winn spoke to Sohail about concerns with pt returning to [facility]; 1. pt was there a very short amount of time before returned to the unit. 2. pt is exhibiting classic dementia symptoms that the facility appears to be overwhelmed with, and 3. the facility would like Dr. Winn to prescribe prn Ativan to give to pt when agitated without there being a regular psych doctor on their staff. Dr. Winn also explained the dangers of giving pts suffering from dementia benzos. CRISTINO also updated Sohail on that [facility] is interested in assessing his brother. Sohail said he will talk with pt's son Rober and then call CRISTINO back with a decision. CRISTINO received 2 vm from Sohail stating the family has decided to give [facility] a chance. CRISTINO contacted Madonna with by phone and was told she was gone for the day. CRISTINO sent Madonna an email with an update. CRISTINO then returned Sohail's call with an update on what she had completed. He said thank you. CRISTINO team will continue to follow pt during his stay on this unit.
[2019-09-22 20:22] VITALS: BP 98/60
--- NOTE | 2019-09-22 23:40 | NUR ---
Assumed care of patient at change of shift. He was sitting in day room with flat affect and emotionaless expression. He occasionally ambulates with bent over posture and slow shuffling gate. He was pushing a chair in front of him at times as if it were a walker. He denies pain when asked and he has no signs or symptoms of distress. Pt. attempted to urinate in day room but was redirected to the toilet in his room where he was unable to void.
[2019-09-23 03:25] VITALS: BP 98/60
[2019-09-23 09:00] VITALS: BP 127/73
--- NOTE | 2019-09-23 09:44 | NUR ---
Assumed care this morning 0700. Patient was still asleep. Patient woke up for breakfast. vitals are stable. Mild edema +1 on left foot. Patient has a shuffling gait. Flat affect and quiet. Took his breakfast well. Med crushed into applesauce. He wanted to urinate on the hallway but redirected patient to the room bathroom. Complies to redirections. Will continue with the plan of care.
[2019-09-23 10:00] VITALS: BP 127/73
--- NOTE | 2019-09-23 13:16 | NUR ---
0900 PATIENT SAT IN DAY ROOM FOR GROUPS BUT DID NOT PARTICIPATE DUE TO DECLINE IN THOUGHT PROCESS.
[2019-09-23 19:38] VITALS: BP 107/69
--- NOTE | 2019-09-23 23:38 | NUR ---
Assumed care at change of shift. Pt. was already in bed. Assessment done. 1-2+ bipedal edema noted. PAINAD = 0. No signs or symptoms of distress noted but patient is lethargic and slightly pale. Last BM noted to be 09/22. HRR, LCTA, abd. x 4. Pt. did not open eyes during assessment nor did he answer any questions. Respirations even and non-labored. He appears to be sleeping.
[2019-09-24 06:24] VITALS: BP 107/69
[2019-09-24 08:46] VITALS: BP 114/63
--- NOTE | 2019-09-24 10:57 | NUR ---
Assumed care this shift around 0700. Patient is relaxed at the activity room. Pt only answering questions with one word. Took medications whole. Flat affect and keeps his head down. Denies SI/HI/COLEMAN. Will continue with the plan of care.
--- NOTE | 2019-09-24 18:20 | NUR ---
patient became more alert and talking to the staff. Took a shower this evening. Able to verbalize has no SI/HI and no pain. Will continue with the plan of care.
[2019-09-24 19:15] VITALS: BP 89/54
--- NOTE | 2019-09-24 22:08 | NUR ---
Assumed care on 09/24/19 @ 1900, sitting in the day room, quiet and head bowed. When aproached and spoke to holds head up but does not answer. Cannot respond to his name or give name. Cooperated calmly with assessment, Hrrr, unable to assess lung sounds, as pt on compliant with request to breathe deeply. abd n x 4 q. when asked if he has sadness or worry, says "yes and no". Compliant with meds, able to swollow meds whole with water, one at a time. In bed at this writing, eyes closed, bed in low position, bed alarm on.
[2019-09-25 09:03] VITALS: BP 112/72
[2019-09-25 09:59] VITALS: BP 112/72
--- NOTE | 2019-09-25 11:39 | NUR ---
1136 RESUMMED CARE FROM OVERNIGHT SHIFT THIS AM, PATIENT IN DAY ROOM QUIET. PATIENT ATE BREAKFAST AND TOOK MEDICATION WITHOUT INCIDENCE, PATIENT BOWEL SOUNDS PRESENT IN ALL 4 QUADRANTS. PATIENT ABDOMEN SOFT ROUND LUNGS CLEAR, PATIENT CANNOT ANSWER SI/HI/AH/VH AT PRESENT DUE TO SLOW BRAIN PROCESS. PATIENT IS QUIET COOPERATIVE DOES NOT INTERACT WITH OTHERS WILL CONTINUE TO MONITOR FOR SAFETY.
--- NOTE | 2019-09-25 12:51 | NUR ---
CRISTINO received an email from Madonna with [facility] asking for updated notes, and stating they can accept pt 09/25. CRISTINO faxed Madonna updated notes on pt. SW team will continue to follow pt during his stay on this unit.
--- NOTE | 2019-09-25 15:11 | NUR ---
Due to COVID-19 SW is meeting with patients and completing check-ins. Pt was in the common area eating ice cream when SW arrived. He smiled at SW and said something she could not understand.
[2019-09-25 19:48] VITALS: BP 90/54
--- NOTE | 2019-09-26 00:33 | NUR ---
Assumed care of patient this pm shift. Patient is wandering and appears confused. Patient answers to his name in soft tones. Patient is oriented to self only. Patient denies pain. Patient denies si. Patient takes medications whole with fluids. Patient ambulates without assistance. Patients affect is flat. Patient requires repetition and redirection to achieve simple tasks. Patients assessment shows clear breath sounds, active bowel sounds, and s1 s2 heard with auscultation. We will continue to monitor.
--- NOTE | 2019-09-26 09:16 | NUR ---
0700 ASSUMED CARE OF PATIENT. PATIENT IN BED WITH EYES CLOSED. WHILE ASSISTING PATIENTS ROOMMATE PATIENT WAKES UP. UP TO BARTHROOM, BRIEF CHANGED AND CLEANED UP. FACE WASHED WITH WASH RAG. PATIENT FOLLOWS WOOD GETTER TO DAYROOM, SITS AT TABLE WAITING FOR BREAKFAST. PATIENT OBSERVED WITH FLAT AFFECT AND DIFFICULTY PROCESSING ANYTING ASKED OF HIM. LS CLEAR, BS ACTIVE, PATIENT DENIES PAIN. WILL CONTINUE TO OBSERVE.
--- NOTE | 2019-09-26 09:24 | NUR ---
CRISTINO received a call from Madonna with [facility] stating that she has not talked with Sohail yet; she has transportation set for 1300 but she needs to speak with Sohail before she can transport pt. CRISTINO contacted Sohail 2x and left a msg. SW team will continue to follow pt during his stay on this unit.
[2019-09-26 09:28] VITALS: BP 110/73
[2019-09-26] MEDS ORDERED: ARICEPT10 M1 PO (10:39)
[2019-09-26] MEDS ORDERED: FLOMAX0.4 MG PO (10:39)
[2019-09-26] MEDS ORDERED: FLECAINIDE ACET50 M2 PO (10:40)
[2019-09-26] MEDS ORDERED: ADULT LOW DOSE81 MG PO (10:41)
[2019-09-26] MEDS ORDERED: DIVALPROEX SOD500 M1 PO (10:41)
[2019-09-26] MEDS ORDERED: COLACE 100 MG100 MG PO (10:42)
[2019-09-26] MEDS ORDERED: NAMENDA 5 MG TAB5 M1 PO (10:42)
[2019-09-26] MEDS ORDERED: VITAMIN D325 MCG PO (10:43)
[2019-09-26] MEDS ORDERED: PANTOPRAZOLE SO40 M1 PO (10:43)
--- NOTE | 2019-09-26 10:45 | NUR ---
PATIENT AMBULATING IN VALDEZ. PATIENT IS CALM AND COOPERATIVE. EASILY REDIRECTED. TALKINS IN A WHISPER AT TIMES WITH DIFFICULTIES PROCESSING WHAT IS SAID TO HIM OR ASKED OF HIM. SITTING WATCHING TV AT THIS TIME. PATIENT SCHEDULED TO DC TODAY AROUND 1300, WILL CONTINUE TO OBSERVE
--- NOTE | 2019-09-26 12:06 | NUR ---
1140 FLUORESCENT LIGHTING MODEL MAKER CALLED [facility] TO READ OFF DC INSTRUCTIONS AND MEDICARE FORM. CONSENT RECIEVED VIA PHONE WITH MIGEL Baird RN CONFIRMING.
--- NOTE | 2019-09-26 13:39 | NUR ---
1305 PATIENT DC'D TO [facility]IA [facility]. PATIENT TO VEHICLE ACCOPMANIED BY STAFF. PATIENT WITH BELONGING IN HAND. DC PACKET GIVEN TO HEARING SCREENER WITH TEMPERTURE LOG REQUESTED BY FACILITY. 1325 REPORT CALLED TO FACILITY AND GIVEN TO EDMAR GARCÍA.
--- NOTE | 2019-09-27 23:39 | D ---
[facility] [place] [address] DISCHARGE SUMMARY Name: [facility] Room #: 522A-A [facility] IN M.R.#: [id number] Admission: 09/13/19 Attend Phys: William Winn DO Discharge: 09/26/19 Date of : 54 Report #: [id number] THIS REPORT FOR: cc: MARSHA GUADALUPE Physician not on staff William Winn DO ~ THIS REPORT FOR: //name// CC: William GUADALUPE Physician staff DATE OF SERVICE: 09/26/2019 INPATIENT PSYCHIATRIC DISCHARGE SUMMARY ATTENDING PSYCHIATRIST: William Winn DO. RN CONCURRENT REVIEW AT THE TIME OF DISCHARGE: William Garcia MD. DISCHARGE DIAGNOSES: Major neurocognitive disorder, likely due to Alzheimer disease with behavioral disturbance, improved; major depressive disorder, essentially no worsening, no improvement and dementia picture is obscuring symptomatology of depression at this point, it is felt. ADDITIONAL DIAGNOSES: Per the hospitalist were atrial fibrillation, on flecainide and aspirin, stabilized; prostatic hypertrophy, on Flomax; gastroesophageal reflux disease, continue PPI; low vitamin D replacement. The patient will be discharging to the [facility] in [facility]. Psychiatric and medical care to be performed by the receiving nursing facility. diet regular acitivity level as tolerated patient needs 24/ supervision and assistance DISCHARGE MEDICATIONS: Donepezil 10 mg p.o. daily; tamsulosin 0.4 mg p.o. daily for cognitive enhancement and BPH; flecainide acetate 50 mg p.o. b.i.d. for atrial fibrillation with RVR; aspirin 81 mg p.o. daily for cardioprotection; Depakote ER 1000 mg p.o. at bedtime for mood stabilization, repeat blood level is 51; memantine 10 mg p.o. b.i.d.; docusate 100 mg p.o. b.i.d., hold if diarrhea for bowel motility; pantoprazole 40 mg p.o. daily for GERD; cholecalciferol 2000 international units p.o. daily for supplementation; multivitamin p.o. daily. [facility] [address] [place] [address] DISCHARGE SUMMARY Name: NADINE DAILEY Room #: 522A-A [facility] IN [facility].#: [id number] Admission: 09/13/19 Attend Phys: William Winn DO Discharge: 09/26/19 Date of : 54 Report #: [id number] LABORATORY DATA: Pertinent laboratories this admission were last CBC on 09/22 with H and H 13.9 and 41.4, white count 5.7, platelets 286,000. Chemistries on 09/06 included sodium 142, potassium 3.8, chloride 105, bicarbonate 30. Hemoglobin A1c 6.2. Calcium 8.8, magnesium 1.9. Vitamin B12 wnl, vitamin D slightly low at 29.2, folate 29.6. TSH 1.828. REASON FOR ADMISSION: Apparently agitated, not able to [facility]. HOSPITAL COURSE: The patient was admitted to Geriatric Psychiatry Unit. Depakote was titrated further. The patient had been on the unit, not even 2 weeks before. The patient was stabilized rather quickly and it was felt that the [facility] would not be able to provide further memory care. The patient needs [facility]. This was discussed with the patient and his brother, Sohail who is his guardian and agreed to placement there. PHYSICAL EXAMINATION: VITAL SIGNS: On the day of discharge, temperature 36.6, pulse 51, respirations 17, BP 110/70, O2 sat 98%. MUSCULOSKELETAL: Slow gait. Normal station. MENTAL STATUS EXAMINATION: This is a well-developed, ill-appearing male, appearing older than stated age. Attention impaired. Concentration impaired. Speech slow. Mood and affect congruent, constricted. Denied SI. Denied HI. Memory not formally tested. Insight impaired, judgment impaired. Fund of knowledge well below average. FORMULATION: A 69-year-old male with bounced back admission from [facility]. It sounds like rather prognosis for this patient is guarded to poor given progressive neurodegenerative disorder. It is my hope that the program at [facility] will help this patient tremendously. Again, prognosis guarded to poor. <ELECTRONICALLY SIGNED> By: William Winn DO 09/27/19 [id number] William Winn DO /nt
== END 2019-09-26 13:05 | DRG 57 ==
LOC: ER 18:28 → SBH 20:57 → EROBS 20:57 → SBH 21:13
PROVIDERS: Internal Medicine; Nurse Practitioner; ADMIT Psychiatry & Neurology Psychiatry; ATTEND Psychiatry & Neurology Psychiatry
DX: G30.9 Alzheimer's disease, unspecified (principal); F02.81 Dementia in other diseases classified elsewhere, unspecified severity, with behavioral disturbance; F01.51 Vascular dementia, unspecified severity, with behavioral disturbance; F32.9 Major depressive disorder, single episode, unspecified; I48.91 Unspecified atrial fibrillation; N40.0 Benign prostatic hyperplasia without lower urinary tract symptoms; K21.9 Gastro-esophageal reflux disease without esophagitis; E55.9 Vitamin D deficiency, unspecified; Z88.2 Allergy status to sulfonamides; Z79.82 Long term (current) use of aspirin; Z79.899 Other long term (current) drug therapy
CPT/HCPCS: 10880